=== PATIENT | female | born 1965 | race Caucasian/White ===

== ENCOUNTER 2019-02-06 17:16 | Inpatient (IN) | payer MEDICARE, MEDICAID ==
[~2019-02-06] VITALS: Ht 170.2 cm; Wt 126.4 kg
[~2019-02-06 17:16] MED LIST: ALB0.5UD IH; ALBU18HF2 INH; ASPI81TA52 PO; DIAZ10TA PO; ESOM20CA PO; FLUT1DIS4 INH; LEVO125T8 PO; LEVO750T46 PO; LORA10TA7 PO; PROP60CA37 PO; TRAM50TA2 PO
[2019-02-06 17:58] LABS: BASOPHILS # (AUTO) 0.1 X10'3 (0-0.2); BASOPHILS % (AUTO) 0.7 % (0-1); EOSINOPHILS # (AUTO) 0.3 X10'3 (0-0.9); MONOCYTES # (AUTO) 0.6 X10'3 (0-0.9); NEUTROPHILS # (AUTO) 10.5 X10'3 (1.8-7.7)
[2019-02-06 18:00] LABS: EOSINOPHILS % (AUTO) 1.8 % (0-6); HEMATOCRIT 41.2 % (35.0-45.0); LYMPHOCYTES # (AUTO) 3.9 X10'3 (1.1-4.8); MEAN CORPUSCULAR HEMOGLOBIN 30.6 PG (27.0-31.0); MEAN CORPUSCULAR HGB CONC 34.1 g/dL (33.0-36.5); MEAN CORPUSCULAR VOLUME 89.8 FL (78-98); MEAN PLATELET VOLUME 8.3 FL (7.4-10.4); NEUTROPHILS % (AUTO) 68.5 % (42-75); PLATELET COUNT 225 X10'3 (140-440); RED BLOOD COUNT 4.59 X10'6 (4.20-5.60); RED CELL DISTRIBUTION WIDTH 15.7 % (11.5-14.5); WHITE BLOOD COUNT 15.4 X10'3 (4.5-11.0)
[2019-02-06 18:15] LABS: ALANINE AMINOTRANSFERASE 40 U/L (12-78); ALBUMIN 3.5 G/DL (3.4-5.0); ALBUMIN/GLOBULIN RATIO 0.8 (1.1-1.5); ALKALINE PHOSPHATASE 147 IU/L (46-116); ANION GAP 9 (8-16); ASPARTATE AMINO TRANSFERASE 22 U/L (10-37); BILIRUBIN,TOTAL 0.4 MG/DL (0.1-1.0); BLOOD UREA NITROGEN 12 MG/DL (7-18); BUN/CREATININE RATIO 13.6 (6.6-38.0); CALCIUM 9.2 MG/DL (8.5-10.1); CHLORIDE 101 MMOL/L (99-107); CREATININE 0.88 MG/DL (0.40-0.90); GLUCOSE 155 MG/DL (70-104); POTASSIUM 3.9 MMOL/L (3.5-5.1); SODIUM 137 MMOL/L (135-145); TOTAL CARBON DIOXIDE 27.5 MMOL/L (24-32); TOTAL PROTEIN 7.8 G/DL (6.4-8.2); eGFR 67 ML/MIN
--- NOTE | 2019-02-06 20:36 | NUR ---
I wanted to re evaluate the patient in triage and she refused. She said she wants to sleep.
[2019-02-06] MEDS ORDERED: ipratropium 0.5 MG/2.5ML nebule IH ONE (22:35)
[2019-02-06] MEDS ORDERED: methylPREDNISolone sod succ 125mg/2ml vial IV ONE (22:35)
[2019-02-06] MEDS ORDERED: normal saline 1000ML IV soln IVB ONE (22:35)
[2019-02-06] MEDS ORDERED: albuterol 2.5 MG/3 ML nebule CONTNEB PRN (22:35)
[2019-02-06] MEDS ORDERED: azithromycin/NS 500mg/250ml 250 ML IV ONE (22:50)
[2019-02-06] MEDS ORDERED: CefTRIAXone 2gm/D5W 50ml 50 ML IV ONE (22:50)
[2019-02-06] MEDS ORDERED: mag hydrox/Alum hydrox/simeth 30ml oral suspension PO PRN (23:00)
[2019-02-06] MEDS ORDERED: ondansetron/PF 4mg/2ml inj IV PRN (23:00)
[2019-02-06] MEDS ORDERED: magnesium hydroxide 30ml (MOM) UD suspension PO PRN (23:00)
[2019-02-06] MEDS ORDERED: ipratropium/albuterol 3ml nebule NEB PRN (23:00)
[2019-02-06] MEDS ORDERED: magnesium Cl slow-release 64mg tablet PO PRN (23:00)
[2019-02-06] MEDS ORDERED: magnesium 2GM in 50ml NS 50 ML IV PRN (23:00)
[2019-02-06] MEDS ORDERED: traMADol 50MG tablet PO PRN (23:00)
[2019-02-06] MEDS ORDERED: potassium CL 10mEq/100ml bag 100 ML IV PRN ×2 (23:00)
[2019-02-06] MEDS ORDERED: magnesium 4gm in 100ml NS 100 ML IV PRN (23:00)
[2019-02-06] MEDS ORDERED: potassium Cl 20 mEq SR tablet PO PRN ×2 (23:00)
[2019-02-06] MEDS ORDERED: LEVO150T8 PO (23:17)
[2019-02-06] MEDS ORDERED: FLO110IN IH (23:17)
[2019-02-06] MEDS ORDERED: ESOM40CA54 PO (23:17)
[2019-02-06] MEDS ORDERED: DIAZ-350 PO (23:17)
[2019-02-06] MEDS ORDERED: ALBU18HF2 (23:17)
[2019-02-07 00:17] LABS: PARTIAL THROMBOPLASTIN TIME 26 SECONDS (22-32)
--- NOTE | 2019-02-07 00:20 | NUR ---
Patient in room [facility]. I have received report from ALLYSON Chou and had the opportunity to ask questions and assume patient care.
[2019-02-07 00:55] LABS: CLARITY,URINE SLIGHTLY CLOUDY (Clear); COLOR,URINE YELLOW (Yellow); GLUCOSE, URINE NEGATIVE (Neg); KETONES,URINE NEGATIVE (Neg); LEUKOCYTE ESTERASE ,URINE LARGE (Neg); NITRITES, URINE POSITIVE (Neg); OCCULT BLOOD,URINE SMALL (Neg); PH,URINE 6.5 (4.8-8.0); PROTEIN,URINE TRACE mg/dl (Neg); UROBILINOGEN,URINE 0.2 E.U/dL (0.2-1.0)
[2019-02-07 01:00] VITALS: BP 122/64
[2019-02-07 01:07] LABS: UA COLLECTION TYPE CLN CATCH MIDSTREAM
[2019-02-07 01:08] LABS: BACTERIA,URINE 4+ /HPF (Neg); RBC,URINE 0-2 /HPF (0-2); SQUAMOUS EPITHELIAL CELL,UR FEW /LPF (FEW); WBC,URINE 30-50 /HPF (0-4)
[2019-02-07] MEDS ORDERED: diazepam 5mg tablet PO PRN ×2 (01:25→07:40)
--- NOTE | 2019-02-07 03:04 | NUR ---
Problems reprioritized. Patient report given, questions answered & plan of care reviewed with ALLYSON Iniguez.
--- NOTE | 2019-02-07 03:05 | NUR ---
Patient in room [facility]. I have received report from ALLYSON Jordan and had the opportunity to ask questions and assume patient care.
[2019-02-07 05:17] LABS: BASOPHILS % (AUTO) 0.2 % (0-1); EOSINOPHILS % (AUTO) 0.1 % (0-6); HEMATOCRIT 39.4 % (35.0-45.0); HEMOGLOBIN 13.1 g/dl (12.0-16.0); LYMPHOCYTES # (AUTO) 1.1 X10'3 (1.1-4.8); LYMPHOCYTES % (AUTO) 8.4 % (21-51); MEAN CORPUSCULAR HEMOGLOBIN 30.1 PG (27.0-31.0); MEAN CORPUSCULAR HGB CONC 33.2 g/dL (33.0-36.5); MEAN CORPUSCULAR VOLUME 90.7 FL (78-98); MEAN PLATELET VOLUME 8.7 FL (7.4-10.4); MONOCYTES # (AUTO) 0.2 X10'3 (0-0.9); MONOCYTES % (AUTO) 1.8 % (2-12); NEUTROPHILS # (AUTO) 11.5 X10'3 (1.8-7.7); NEUTROPHILS % (AUTO) 89.5 % (42-75); PLATELET COUNT 251 X10'3 (140-440); RED BLOOD COUNT 4.34 X10'6 (4.20-5.60); WHITE BLOOD COUNT 12.9 X10'3 (4.5-11.0)
[2019-02-07 05:29] LABS: ALBUMIN 3.1 G/DL (3.4-5.0); ANION GAP 9 (8-16); BLOOD UREA NITROGEN 13 MG/DL (7-18); BUN/CREATININE RATIO 11.8 (6.6-38.0); CALCIUM 8.7 MG/DL (8.5-10.1); CHLORIDE 103 MMOL/L (99-107); GLUCOSE 392 MG/DL (70-104); POTASSIUM 4.2 MMOL/L (3.5-5.1); SODIUM 138 MMOL/L (135-145); TOTAL CARBON DIOXIDE 26.1 MMOL/L (24-32); eGFR 52 ML/MIN
[2019-02-07] MEDS: levoTHYROXINE 75mcg tablet PO SCH ×2 (05:39→07:17)
--- NOTE | 2019-02-07 06:25 | NUR ---
Problems reprioritized. Patient report given, questions answered & plan of care reviewed with ALLYSON Lynch.
[2019-02-07 07:00] VITALS: BP 109/59
--- NOTE | 2019-02-07 07:07 | NUR ---
Patient in room [facility]. I have received report from Tomeka VALADEZ and had the opportunity to ask questions and assume patient care.
[2019-02-07] MEDS: methylPREDNISolone sod succ/PF 40mg inj. IV SCH ×3 (07:13→16:52)
[2019-02-07] MEDS: aspirin 81mg tablet.DR PO SCH (07:14)
[2019-02-07] MEDS: lactobacillus rhamnosus 10,000 MMU CELLS/CAPSULE PO SCH ×2 (07:14→21:34)
[2019-02-07] MEDS: loratadine 10mg tablet PO SCH (07:15)
[2019-02-07] MEDS: enoxaparin 40mg/0.4ml syringe SQ SCH (07:15)
[2019-02-07] MEDS ORDERED: albuterol 2.5 MG/3 ML nebule NEB PRN (07:40)
[2019-02-07] MEDS ORDERED: aspirin 81mg tablet.DR PO SCH (08:00)
[2019-02-07] MEDS ORDERED: oseltamivir phos 75mg capsule PO SCH (08:00)
[2019-02-07] MEDS: ipratropium/albuterol 3ml nebule NEB SCH ×4 (08:00→21:00)
[2019-02-07] MEDS: K and/or MAG REPLACEMENT MC SCH ×2 (08:00→19:00)
[2019-02-07] MEDS: pantoprazole 40mg Tablet.DR PO SCH (10:04)
[2019-02-07 11:00] VITALS: BP 146/76
[2019-02-07] MEDS ORDERED: dextrose 50%-water 50ml dispensing syringe IV PRN ×2 (16:00)
[2019-02-07] MEDS ORDERED: dextrose ORAL solution 15 GM/59 ML bottle PO PRN ×2 (16:00)
[2019-02-07] MEDS ORDERED: MESSAGE TO PHARMACY PO ONE (16:00)
[2019-02-07] MEDS ORDERED: glucagon, human recombinant 1mg kit SUBCUT PRN (16:00)
--- NOTE | 2019-02-07 16:32 | NUR ---
Patient stated to staff that she was pre-diabetic. Staff noticed am blood sugar with lab draw was 392. Accucheck done. Patients blood sugar 392. Dr Barraza notified. Ordered BS accuchecks and protocol ordered. will continue to monitor.
[2019-02-07 16:45] LABS: HEMOGLOBIN A1C 7.8 % (4.5-6.2)
--- NOTE | 2019-02-07 17:57 | NUR ---
patient given specimen cup for sputum culture, but misheard and used it for urine sample! Staff provided another sample cup and instructed patient.
[2019-02-07 18:00] VITALS: BP 128/63
--- NOTE | 2019-02-07 18:02 | NUR ---
Problems reprioritized. Patient report given, questions answered & plan of care reviewed with Tatiana VALADEZ.
[2019-02-07 18:15] VITALS: BP 128/63
[2019-02-07] MEDS: insulin Lispro (HumaLOG) vial - multi-dose SQ SCH ×2 (18:42→21:41)
--- NOTE | 2019-02-07 18:42 | NUR ---
Patient in room [facility]. I have received report from ALLYSON Lynch and had the opportunity to ask questions and assume patient care.
[2019-02-07] MEDS ORDERED: insulin glargine (Lantus) pen - multi-dose SQ SCH (21:00)
[2019-02-07] MEDS: diazepam 5mg tablet PO PRN (21:48)
[2019-02-07] MEDS ORDERED: azithromycin 250mg tablet PO SCH (22:00)
[2019-02-07] MEDS ORDERED: CefTRIAXone 2gm/D5W 50ml 50 ML IV SCH (23:00)
[2019-02-08] VITALS: BP 115/60
[2019-02-08] MEDS: methylPREDNISolone sod succ/PF 40mg inj. IV SCH ×2 (00:46→07:30)
[2019-02-08 05:16] LABS: BASOPHILS % (AUTO) 0.1 % (0-1); EOSINOPHILS % (AUTO) 0 % (0-6); HEMATOCRIT 37.5 % (35.0-45.0); HEMOGLOBIN 12.4 g/dl (12.0-16.0); LYMPHOCYTES # (AUTO) 1.8 X10'3 (1.1-4.8); MEAN CORPUSCULAR VOLUME 90.7 FL (78-98); MEAN PLATELET VOLUME 8.8 FL (7.4-10.4); MONOCYTES # (AUTO) 0.6 X10'3 (0-0.9); MONOCYTES % (AUTO) 3.4 % (2-12); NEUTROPHILS # (AUTO) 13.9 X10'3 (1.8-7.7); NEUTROPHILS % (AUTO) 85.5 % (42-75); PLATELET COUNT 277 X10'3 (140-440); RED BLOOD COUNT 4.13 X10'6 (4.20-5.60); RED CELL DISTRIBUTION WIDTH 15.8 % (11.5-14.5); WHITE BLOOD COUNT 16.3 X10'3 (4.5-11.0)
[2019-02-08 05:34] LABS: ALBUMIN 3.1 G/DL (3.4-5.0); ANION GAP 9 (8-16); BLOOD UREA NITROGEN 17 MG/DL (7-18); BUN/CREATININE RATIO 15.6 (6.6-38.0); CALCIUM 8.8 MG/DL (8.5-10.1); CHLORIDE 102 MMOL/L (99-107); CREATININE 1.09 MG/DL (0.40-0.90); GLUCOSE 389 MG/DL (70-104); MAGNESIUM 2.3 MG/DL (1.5-2.4); POTASSIUM 4.2 MMOL/L (3.5-5.1); SODIUM 135 MMOL/L (135-145); TOTAL CARBON DIOXIDE 24.3 MMOL/L (24-32); eGFR 52 ML/MIN
[2019-02-08 07:25] VITALS: BP 114/63
[2019-02-08] MEDS: loratadine 10mg tablet PO SCH (07:28)
[2019-02-08] MEDS: pantoprazole 40mg Tablet.DR PO SCH (07:28)
[2019-02-08] MEDS: aspirin 81mg tablet.DR PO SCH (07:28)
[2019-02-08] MEDS: lactobacillus rhamnosus 10,000 MMU CELLS/CAPSULE PO SCH (07:28)
[2019-02-08] MEDS: enoxaparin 40mg/0.4ml syringe SQ SCH (07:29)
[2019-02-08] MEDS ORDERED: non-formulary drug (Levothyroxine Sodium 1 TAB) PO SCH (07:30)
[2019-02-08] MEDS: K and/or MAG REPLACEMENT MC SCH (07:39)
[2019-02-08] MEDS: ipratropium/albuterol 3ml nebule NEB SCH (08:44)
[2019-02-08] MEDS: diazepam 5mg tablet PO PRN (09:30)
[2019-02-08] MEDS: insulin Lispro (HumaLOG) vial - multi-dose SQ SCH (09:35)
[2019-02-08] MEDS: levoTHYROXINE 75mcg tablet PO SCH (09:38)
[2019-02-08] MEDS ORDERED: PRED20TA PO (11:02)
[2019-02-08] MEDS ORDERED: LEVO500T89 PO (11:02)
[2019-02-08 11:35] VITALS: BP 131/59
--- NOTE | 2019-02-08 11:48 | NUR ---
Patient stable and appropriate for discharge home. IV removed. All belongings taken from room. New prescriptions transmitted to preferred pharmacy. Diabetes survival skills and discharge instructions given and reviewed with patient.
--- NOTE | 2019-02-08 12:29 | NUR ---
DM consult: Pt reports she is prediabetic however A1c is 7.8 per MD notes. Per consult pt is a newly diagnosed T2DM. Pt discharged prior to RD being available for bedside visit. Written DM education with referral to outpatient DM class and RD contact information mailed to home address found in EMR. Addendum: 02/08/19 at [address] Amended: Links added.
== END 2019-02-08 11:45 | disposition home or self-care (01) | DRG 193 ==
LOC: ER 17:17 → ED HOLD 22:59 → SUR 3N 02-07 00:50
PROVIDERS: ADMIT Hospitalist; ATTEND Hospitalist
DX: J18.9 Pneumonia, unspecified organism (principal); J96.01 Acute respiratory failure with hypoxia; J44.0 Chronic obstructive pulmonary disease with (acute) lower respiratory infection; Z68.41 Body mass index [BMI] 40.0-44.9, adult; N39.0 Urinary tract infection, site not specified; J44.1 Chronic obstructive pulmonary disease with (acute) exacerbation; E11.9 Type 2 diabetes mellitus without complications; F17.210 Nicotine dependence, cigarettes, uncomplicated; E06.3 Autoimmune thyroiditis; E05.00 Thyrotoxicosis with diffuse goiter without thyrotoxic crisis or storm; E66.01 Morbid (severe) obesity due to excess calories; Z80.1 Family history of malignant neoplasm of trachea, bronchus and lung; Z80.8 Family history of malignant neoplasm of other organs or systems; Z90.710 Acquired absence of both cervix and uterus; Z88.5 Allergy status to narcotic agent; Z88.0 Allergy status to penicillin; Z90.49 Acquired absence of other specified parts of digestive tract; Z79.899 Other long term (current) drug therapy; Z71.6 Tobacco abuse counseling
CPT/HCPCS: 36415; 71045; 80048; 80053; 81001; 82948; 83036; 83605; 83735; 84145; 85025; 85610; 85730; 87040; 87070; 87077; 87081; 87088; 87186; 87502; 87503; 94640; 94644; 94760; 99285; G0378; J0456; J0696; J1650; J1815; J2920; J2930

== ENCOUNTER 2019-09-25 09:01 | Emergency (ER) | payer MEDICARE, MEDICAID ==
[~2019-09-25] VITALS: Ht 170.2 cm; Wt 119.1 kg
[~2019-09-25 09:01] MED LIST changes: -ALB0.5UD IH; +DIAZ-350 PO; -DIAZ10TA PO; -ESOM20CA PO; +ESOM40CA54 PO; +FLO110IN IH; -FLUT1DIS4 INH; -LEVO125T8 PO; +LEVO150T8 PO; -LEVO750T46 PO; -PROP60CA37 PO; -TRAM50TA2 PO
--- NOTE | 2019-09-25 09:28 | NUR ---
Pt. assisted to the bathroom
[2019-09-25 09:47] LABS: CLARITY,URINE CLOUDY (Clear); COLOR,URINE YELLOW (Yellow); GLUCOSE, URINE NEGATIVE (Neg); KETONES,URINE NEGATIVE (Neg); LEUKOCYTE ESTERASE ,URINE MODERATE (Neg); NITRITES, URINE POSITIVE (Neg); OCCULT BLOOD,URINE SMALL (Neg); PH,URINE 6.5 (4.8-8.0); PROTEIN,URINE TRACE mg/dl (Neg); UROBILINOGEN,URINE 0.2 E.U/dL (0.2-1.0)
[2019-09-25 09:49] LABS: UA COLLECTION TYPE CLN CATCH MIDSTREAM
[2019-09-25 09:49] LABS: BASOPHILS # (AUTO) 0.1 X10'3 (0-0.2); BASOPHILS % (AUTO) 0.6 % (0-1); EOSINOPHILS # (AUTO) 0.4 X10'3 (0-0.9); EOSINOPHILS % (AUTO) 3.1 % (0-6); HEMATOCRIT 45.4 % (35.0-45.0); HEMOGLOBIN 15.1 g/dl (12.0-16.0); MEAN CORPUSCULAR HEMOGLOBIN 30.1 PG (27.0-31.0); MEAN CORPUSCULAR HGB CONC 33.2 g/dL (33.0-36.5); MEAN CORPUSCULAR VOLUME 90.6 FL (78-98); MEAN PLATELET VOLUME 8.2 FL (7.4-10.4); MONOCYTES # (AUTO) 0.5 X10'3 (0-0.9); NEUTROPHILS # (AUTO) 7.7 X10'3 (1.8-7.7); NEUTROPHILS % (AUTO) 66.3 % (42-75); PLATELET COUNT 323 X10'3 (140-440); RED BLOOD COUNT 5.01 X10'6 (4.20-5.60); RED CELL DISTRIBUTION WIDTH 15.3 % (11.5-14.5); WHITE BLOOD COUNT 11.6 X10'3 (4.5-11.0)
[2019-09-25 09:54] LABS: BACTERIA,URINE 4+ /HPF (Neg); MUCUS STRANDS NONE SEEN /LPF (Neg); SQUAMOUS EPITHELIAL CELL,UR MODERATE /LPF (FEW); TRICHOMONAS,URINE MOD /HPF (NEGATIVE)
[2019-09-25 10:02] LABS: ALANINE AMINOTRANSFERASE 53 U/L (12-78); ALBUMIN 3.7 G/DL (3.4-5.0); ALBUMIN/GLOBULIN RATIO 0.8 (1.1-1.5); ALKALINE PHOSPHATASE 158 IU/L (46-116); ANION GAP 10 (8-16); ASPARTATE AMINO TRANSFERASE 39 U/L (10-37); BILIRUBIN,TOTAL 0.5 MG/DL (0.1-1.0); BLOOD UREA NITROGEN 15 MG/DL (7-18); BUN/CREATININE RATIO 17.9 (6.6-38.0); CHLORIDE 102 MMOL/L (99-107); CREATININE 0.84 MG/DL (0.40-0.90); GLUCOSE 186 MG/DL (70-104); POTASSIUM 4.4 MMOL/L (3.5-5.1); SODIUM 136 MMOL/L (135-145); TOTAL CARBON DIOXIDE 24.2 MMOL/L (24-32); TOTAL PROTEIN 8.4 G/DL (6.4-8.2); eGFR 70 ML/MIN
[2019-09-25] MEDS ORDERED: SULF1TAB49 PO (10:33)
[2019-09-25 11:03] VITALS: BP 129/80
== END 2019-09-25 11:03 | disposition home or self-care (01) ==
LOC: ER 09:02
DX: H53.8 Other visual disturbances (principal); I10 Essential (primary) hypertension; G43.909 Migraine, unspecified, not intractable, without status migrainosus; N39.0 Urinary tract infection, site not specified; J44.9 Chronic obstructive pulmonary disease, unspecified; E05.00 Thyrotoxicosis with diffuse goiter without thyrotoxic crisis or storm; R06.02 Shortness of breath; Z90.710 Acquired absence of both cervix and uterus; Z98.890 Other specified postprocedural states; K58.9 Irritable bowel syndrome, unspecified
CPT/HCPCS: 36415; 80053; 81001; 83880; 84443; 84484; 85025; 85610; 87077; 87088; 87186; 93005; 99284

== ENCOUNTER 2020-10-24 10:16 | Emergency (ER) | payer MEDICARE, MEDICAID ==
[~2020-10-24] VITALS: Ht 165.1 cm; Wt 118.2 kg
[2020-10-24 10:24] VITALS: BP 115/65
[2020-10-24 12:20] LABS: BASOPHILS % (AUTO) 0.5 % (0-1); EOSINOPHILS % (AUTO) 0.2 % (0-6); HEMATOCRIT 43.6 % (35.0-45.0); HEMOGLOBIN 14.3 g/dl (12.0-16.0); LYMPHOCYTES # (AUTO) 2.5 X10'3 (1.1-4.8); LYMPHOCYTES % (AUTO) 32.4 % (21-51); MEAN CORPUSCULAR HGB CONC 32.8 g/dL (33.0-36.5); MEAN CORPUSCULAR VOLUME 88.5 FL (78-98); MEAN PLATELET VOLUME 8.5 FL (7.4-10.4); MONOCYTES # (AUTO) 0.5 X10'3 (0-0.9); MONOCYTES % (AUTO) 6.1 % (2-12); NEUTROPHILS # (AUTO) 4.6 X10'3 (1.8-7.7); NEUTROPHILS % (AUTO) 60.8 % (42-75); PLATELET COUNT 208 X10'3 (140-440); RED BLOOD COUNT 4.93 X10'6 (4.20-5.60); RED CELL DISTRIBUTION WIDTH 16.3 % (11.5-14.5); WHITE BLOOD COUNT 7.6 X10'3 (4.5-11.0)
[2020-10-24 12:32] LABS: ALBUMIN 3.2 G/DL (3.4-5.0); ANION GAP 12 (8-16); BLOOD UREA NITROGEN 16 MG/DL (7-18); BUN/CREATININE RATIO 14.3 (6.6-38.0); CALCIUM 8.1 MG/DL (8.5-10.1); CHLORIDE 102 MMOL/L (99-107); CREATININE 1.12 MG/DL (0.40-0.90); GLUCOSE 165 MG/DL (70-104); POTASSIUM 3.5 MMOL/L (3.5-5.1); SODIUM 136 MMOL/L (135-145); TOTAL CARBON DIOXIDE 21.8 MMOL/L (24-32); eGFR 50 ML/MIN
[2020-10-24 13:05] LABS: UA COLLECTION TYPE CLN CATCH MIDSTREAM
[2020-10-24 13:06] LABS: CLARITY,URINE CLOUDY (Clear); COLOR,URINE DARK YELLOW (Yellow); GLUCOSE, URINE 500 mg/dl (Neg); KETONES,URINE NEGATIVE (Neg); LEUKOCYTE ESTERASE ,URINE MODERATE (Neg); NITRITES, URINE NEGATIVE (Neg); OCCULT BLOOD,URINE LARGE (Neg); PROTEIN,URINE 300 mg/dl (Neg); UROBILINOGEN,URINE 0.2 E.U/dL (0.2-1.0)
[2020-10-24 13:09] LABS: BACTERIA,URINE 4+ /HPF (Neg); RBC,URINE TNTC /HPF (0-2); SQUAMOUS EPITHELIAL CELL,UR MODERATE /LPF (FEW); WBC,URINE TNTC /HPF (0-4)
[2020-10-24] MEDS ORDERED: CEFD300C3 PO (13:24)
[2020-10-24] MEDS ORDERED: ONDA4TAB12 PO (13:24)
== END 2020-10-24 13:35 | disposition home or self-care (01) ==
LOC: ER 10:16
DX: U07.1 COVID-19 (principal); J06.9 Acute upper respiratory infection, unspecified; G43.909 Migraine, unspecified, not intractable, without status migrainosus; J44.9 Chronic obstructive pulmonary disease, unspecified; E11.9 Type 2 diabetes mellitus without complications; E05.00 Thyrotoxicosis with diffuse goiter without thyrotoxic crisis or storm; Z87.01 Personal history of pneumonia (recurrent); Z90.49 Acquired absence of other specified parts of digestive tract; Z98.890 Other specified postprocedural states; Z90.710 Acquired absence of both cervix and uterus; Z79.899 Other long term (current) drug therapy; Z79.82 Long term (current) use of aspirin; Z88.0 Allergy status to penicillin; Z88.8 Allergy status to other drugs, medicaments and biological substances
CPT/HCPCS: 36415; 80048; 81001; 85025; 87077; 87088; 87186; 87502; 87503; 99283; U0003; U0005; 99284